=== PATIENT | female | born 1985 | race Caucasian/White ===

== ENCOUNTER 2017-04-13 14:39 | Inpatient (IN) | payer OTHER ==
[~2017-04-13] VITALS: Ht 154.9 cm; Wt 80.0 kg
[~2017-04-13 14:39] MED LIST: PRENTAB26 PO; ZNTT/150 PO
[2017-04-13] MEDS ORDERED: LACTATED RINGER'S 1000ML 1,000 ML IV SCH (15:11)
[2017-04-13] MEDS ORDERED: LACTATED RINGER'S 1000ML 1,000 ML IV PRN (15:11)
[2017-04-13 15:49] LABS: HEMATOCRIT 36.6 % (37-47); MEAN CELL VOLUME 87.8 fL (80-100); MEAN CORPUSCULAR HEMOGLOBIN 29.7 pg (25-34); MEAN CORPUSCULAR HGB CONC 33.9 g/dl (32-36); MEAN PLATELET VOLUME 10.1 fL (7.4-10.4); PLATELET COUNT 266 K/uL (130-400); RED BLOOD COUNT 4.17 M/uL (4.2-5.4); WHITE BLOOD COUNT 8.87 K/uL (4.8-10.8)
[2017-04-13] MEDS ORDERED: EpHEDrine SULFATE INJ 50 MG/ML AMP ONE (15:49)
[2017-04-13] MEDS ORDERED: BUPIVACAINE 0.25% 30 ML VIAL ONE (15:49)
[2017-04-13] MEDS ORDERED: FENTANYL 2MCG/ML ROPIV 1.25MG/ML 100ML BAG EPI ONE (15:50)
[2017-04-13] MEDS ORDERED: FENTANYL CITRATE INJ 50 MCG/1 ML 2 ML VIAL ONE (15:51)
--- NOTE | 2017-04-13 16:06 | HISTORY & PHYSICAL EXAMINATION ---
DATE OF ADMISSION: 04/13/2017 CHIEF COMPLAINT: Leakage of fluid and contractions. HISTORY OF PRESENT ILLNESS: The patient is a 31-year-old -0-0-2 at 39 weeks and 6 days of gestation who felt a leakage of fluid at around 2:15 p.m. this afternoon. She was shopping and she had a gush of fluid which soaked her underpants as well as her pants down to her legs and it was clear. She has been feeling contractions irregularly since last night, but they got closer and regular after she felt the leakage. They have been coming every 3-5 minutes and getting painful and she desires epidural for pain. She denies any bleeding. She reports good movements. She denies fever, chills, chest pain, shortness of breath, headache, change in her vision, nausea, vomiting, epigastric or right upper quadrant pain. Her has been uncomplicated and her initial testing is positive. Her cervix is found to be dilated 5 cm, 80%, -3 and she is being admitted for labor. PAST MEDICAL HISTORY: Unremarkable. PAST SURGICAL HISTORY: None. MEDICATIONS: vitamins. ALLERGIES: AMOXICILLIN. SOCIAL HISTORY: The patient denies smoking, alcohol or drug use. She is a medical doctor. She lives with her and her kids. GYNECOLOGIC HISTORY: The patient denies any history of STDs including Chlamydia, gonorrhea, and herpes. OBSTETRICAL HISTORY: She had 2 full term spontaneous vaginal deliveries with no complications in 2011 and 2014. This is her third . LABORATORY DATA: Her blood type is O positive, antibody screen negative, rubella titer positive, RPR nonreactive, hepatitis B surface antigen negative and urine culture was negative. GC chlamydia cultures were negative and her Glucola was 100 mg per deciliter. H\T\H was 13/37, platelets 308 and GBS culture was negative. PHYSICAL EXAMINATION: GENERAL: The patient is alert, oriented x3, not in acute distress. CARDIOVASCULAR SYSTEM: S1, S2, RRR. LUNGS: Clear to auscultation bilaterally. ABDOMEN: Soft, gravid. Crow's 7-7-1/2 pounds. EXTREMITIES: Nontender, no edema. VITAL SIGNS: Her blood pressure is 135/90, temperature 98, pulse 117. PELVIC: Her initial testing is positive. Cervix is 5 cm dilated, 80%, -3, vertex. heart rate 140s, category 1. [place] contractions every 2-4 minutes. ASSESSMENT AND PLAN: The patient is a 31-year-old 3, para 2-0-0-2 at 39 weeks and 6 days gestation presenting with spontaneous rupture of membranes at term with regular contractions and in active labor. Vital signs stable, afebrile. GBS negative. heart rate reassuring. Plan is admit her, start IV fluids and epidural for pain and anticipate spontaneous vaginal delivery. She understands that the augmentation of labor with Pitocin may be indicated if there is no cervical change, which will decrease the risk for chorioamnionitis infection. All questions were answered. NINI
[2017-04-13] MEDS ORDERED: LACTATED RINGER'S 1000ML 500 ML IV PRN (16:59)
[2017-04-13] MEDS ORDERED: NALOXONE HCL INJ 1 MG in SODIUM CHLORIDE 0.9% 1000ML 1,000 ML IV PRN (16:59)
[2017-04-13] MEDS ORDERED: NALBUPHINE HCL INJ 10 MG/ML AMP IV PRN (17:00)
[2017-04-13] MEDS ORDERED: FENTANYL 2MCG/ML ROPIV 1.25MG/ML 100ML BAG EPI PRN (17:00)
[2017-04-13] MEDS ORDERED: NALOXONE HCL INJ 0.4 MG/1 ML VIAL/CARP IV PRN (17:00)
[2017-04-13] MEDS ORDERED: DiphenhydrAMINE HCL 50 MG/ML VIAL IV PRN (17:00)
[2017-04-13] MEDS ORDERED: EpHEDrine SULFATE INJ 50 MG/ML AMP IV PRN (17:00)
[2017-04-13] MEDS ORDERED: ONDANSETRON INJ 2 MG/ML 2 ML VIAL IV PRN (17:00)
[2017-04-13] MEDS ORDERED: OXYTOCIN 30 UNITS/500ML NSS IV ONE (17:07)
[2017-04-13] MEDS ORDERED: DIPHTHERIA/TETANUS/PERTUSSIS 0.5 ML SYR/VIAL IM. ONE (17:30)
[2017-04-13] MEDS ORDERED: OXYTOCIN 30 UNITS/500ML NSS IV PRN (17:30)
[2017-04-13] MEDS ORDERED: SUPERCREAM 0.870 % 15GM JAR EXT PRN (17:30)
[2017-04-13] MEDS ORDERED: MEASLES, MUMPS & RUBELLA VIRUS VIAL SQ. ONE (17:30)
[2017-04-13] MEDS ORDERED: LANOLIN OINT EXT PRN ×2 (17:30)
[2017-04-13] MEDS ORDERED: ACETAMINOPHEN 325 MG TAB PO PRN (17:30)
[2017-04-13] MEDS ORDERED: HYDROCORTISONE ACETATE 25 MG SUPP PR PRN (17:30)
[2017-04-13] MEDS ORDERED: BENZOCAINE 20% AER SPR 82.5 GM CAN EXT PRN (17:30)
--- NOTE | 2017-04-13 18:11 | Anesthesia Procedure Note ---
Anesthesia Epidural Removal Nt Date & Time April 13, 2017 at 18:11 Notes Mental Status: alert / awake / arousable, participated in evaluation Nausea / Vomiting: adequately controlled Pain: adequately controlled Airway Patency, RR, SpO2: stable & adequate BP & HR: stable & adequate Hydration State: stable & adequate Neuraxial Anesthesia: was administered Anesthetic Complications: no major complications apparent, pt satisfied with anesthetic care Epidural: removed without complications, with tip intact
[2017-04-13 19:25] VITALS: BP 123/80; PULSE 87; TEMP 36.4
[2017-04-13 19:52] VITALS: Ht 154.9 cm; Wt 80.0 kg
--- NOTE | 2017-04-13 19:59 | DELIVERY SUMMARY ---
DATE OF OPERATION: 04/13/2017 TIME OF DELIVERY OF BABY: 17:10 p.m. TIME OF DELIVERY OF PLACENTA: 17:20 p.m. DETAILS OF DELIVERY: The patient was found to be fully dilated and desired to push. She pushed for about 10 minutes and delivered the head over an intact perineum. Shoulders were delivered with minimal traction and baby was handed off to the mother where mouth and nose were suctioned and the baby was dried. Cord was clamped x2 and cut at one minute delay. It was 3-vessel cord. Cord blood was obtained. Vagina and perineum were checked for lacerations. There were no lacerations in vagina or perineum. Placenta was found to be in the vagina, delivered spontaneously as intact and complete. Uterus was explored and found to be empty. Lower segment was cleared of all clots and debris. Fundus was firm. EBL was 100. Mom and baby tolerated the procedure well. Baby was a viable male . Apgars 8/10. Weight is 3491 gr. No complications happened and I was present during whole procedure. At the end of the procedure, sponge, lap, needle, instrument count was correct x2. I attest to the content of the Intraoperative Record and any orders documented therein. Any exceptions are noted below. MTDD
[2017-04-13 23:45] VITALS: BP 120/74; PULSE 93; TEMP 37
[2017-04-13] MEDS: IBUPROFEN 600 MG TAB PO PRN (23:57)
[2017-04-13] MEDS: RANITIDINE HCL 150 MG TAB PO SCH (23:57)
[2017-04-14 04:40] VITALS: BP 119/80; PULSE 92; TEMP 36.9
[2017-04-14 06:50] LABS: HEMATOCRIT 34.5 % (37-47)
[2017-04-14 07:45] VITALS: BP 123/81; PULSE 83; TEMP 36.4; O2SAT 97
[2017-04-14] MEDS: FERROUS SULFATE 325 MG TAB PO SCH (08:01)
[2017-04-14] MEDS: RANITIDINE HCL 150 MG TAB PO SCH ×2 (08:01→20:01)
[2017-04-14] MEDS: PRENATAL VITAMIN TAB PO SCH (08:01)
[2017-04-14] MEDS: IBUPROFEN 600 MG TAB PO PRN ×4 (08:02→23:35)
--- NOTE | 2017-04-14 11:39 | OB/GYN Progress Note ---
WIDE [facility] Progress Note Date of Service April 14, 2017. Subjective conversation w/ patient, physical exam Ambulation: ambulating normally Voiding: no voiding problems Passing Gas: Yes Diet Tolerance: Regular Diet Lochia: Small Feeding Type: Breast Feeding Objective Vital Signs Date Time Temp Pulse Resp B/P Pulse Ox O2 Delivery O2 Flow Rate FiO2 04/14/17 07:45 36.4 83 16 123/81 97 Room Air 04/14/17 07:45 97 Room Air 04/14/17 04:40 36.9 92 18 119/80 Room Air 04/13/17 23:45 Room Air 04/13/17 23:45 37.0 93 20 120/74 Room Air 04/13/17 19:25 36.4 87 20 123/80 Room Air Physical Exam General Appearance: WELL-APPEARING, NO APPARENT DISTRESS Abdomen: non tender, soft Fundus: Firm Extremities: no pedal edema, no calf tenderness Laboratory Results Last 24 Hours Test 04/13/17 15:27 04/13/17 15:28 04/14/17 06:26 White Blood Count 8.87 K/uL Red Blood Count 4.17 M/uL Hemoglobin 12.4 g/dL 11.5 g/dL Hematocrit 36.6 % 34.5 % Mean Corpuscular Volume 87.8 fL Mean Corpuscular Hemoglobin 29.7 pg Mean Corpuscular Hemoglobin Concent 33.9 g/dl RDW Standard Deviation 44.1 fL RDW Coefficient of Variation 13.8 % Platelet Count 266 K/uL Mean Platelet Volume 10.1 fL Amniotic Fluid Protein POS Assessment and Plan Post- Day Number: 1 Continue Routine Care: tent d/c in AM
[2017-04-14 12:10] VITALS: BP 121/84; PULSE 84; TEMP 36.5; O2SAT 98
[2017-04-14 16:00] VITALS: BP 119/84; PULSE 85; TEMP 36.6; O2SAT 97
[2017-04-14] MEDS ORDERED: BISACODYL 5 MG TABEC PO SCH (20:00)
[2017-04-14 23:45] VITALS: BP 126/85; PULSE 83; TEMP 36.5
[2017-04-15] MEDS ORDERED: BISACODYL 10 MG SUPP PR PRN (07:00)
[2017-04-15 07:11] LABS: HEMATOCRIT 35.4 % (37-47); MEAN CELL VOLUME 89.2 fL (80-100); MEAN CORPUSCULAR HEMOGLOBIN 29.7 pg (25-34); MEAN CORPUSCULAR HGB CONC 33.3 g/dl (32-36); MEAN PLATELET VOLUME 9.4 fL (7.4-10.4); PLATELET COUNT 246 K/uL (130-400); RED BLOOD COUNT 3.97 M/uL (4.2-5.4)
[2017-04-15 07:55] VITALS: BP 119/72; PULSE 103; TEMP 36.6; O2SAT 96
--- NOTE | 2017-04-15 07:57 | OB/GYN Progress Note ---
[employer] Progress Note Date of Service: April 15, 2017. Patient is seen and examined. She feels well, no complaints. Ambulating without dizziness Voiding without difficulty Tolerating regular diet with out N&V Bleeding is minimal No fever/ chills/ CP/ SOB/ N&V/ Leg pain Breast feeding without problems Discussed contraception with patient in details. Abstinence for 6 weeks, BCP, progestin only pills, Nexplanon, IUD's, Mirena and Pargard. Likes to think about it. Date Time Temp Pulse Resp B/P Pulse Ox O2 Delivery O2 Flow Rate FiO2 04/14/17 23:45 Room Air 04/14/17 23:45 36.5 83 18 126/85 Room Air 04/14/17 16:00 36.6 85 18 119/84 97 Room Air 04/14/17 16:00 97 Room Air 04/14/17 12:10 36.5 84 20 121/84 98 Room Air Last 24 Hours Test 04/15/17 06:50 White Blood Count 7.10 K/uL Red Blood Count 3.97 M/uL Hemoglobin 11.8 g/dL Hematocrit 35.4 % Mean Corpuscular Volume 89.2 fL Mean Corpuscular Hemoglobin 29.7 pg Mean Corpuscular Hemoglobin Concent 33.3 g/dl RDW Standard Deviation 45.4 fL RDW Coefficient of Variation 13.9 % Platelet Count 246 K/uL Mean Platelet Volume 9.4 fL PE: General: Alert, orientedx3, NAD Abd: soft, NT, fundus firm, below Umbilicus Perineum intact, Lochia rubra minimal Ext; NT, no edema AP: 31 yo s/p , ppd# 2 VSS Afebrile doing well Continue routine care All questions were answered D/C home , f/u in office
[2017-04-15] MEDS: RANITIDINE HCL 150 MG TAB PO SCH (08:18)
[2017-04-15] MEDS: PRENATAL VITAMIN TAB PO SCH (08:18)
[2017-04-15] MEDS: FERROUS SULFATE 325 MG TAB PO SCH (08:18)
--- NOTE | 2017-04-15 11:55 | Discharge Instructions ---
Discharge Instructions Date of Service April 15, 2017. Admission Reason for Admission: Check Repture Membranes Discharge Discharge Diagnosis / Problem: Discharge Goals Goal(s): Routine recovery after delivery Medications Continue Dispensed Medications: lansinoh Activity Recommendations Activity Limitations: as noted below Lifting Limitations: gradually increase as tolerated Exercise/Sports Limitations: until after follow-up appointment May Resume Sexual Activity: after follow-up appointment Shower/Bathe: no limitations Driving or Machine Use: ACTIVITY RECOMMENDATIONS: * Gradual return to full activity over the next 2-3 weeks. * No lifting - nothing heavier than baby over the next 2-3 weeks. * Do not engage in vigorous exercise, sexual activity or sports until cleared by your physician. * Do not drive or operate any motorized equipment until cleared by your physician. * You may shower/bathe daily. BREAST CARE: If you are not breast feeding: * Wear a supportive bra 24 hours a day for one to two weeks. * Avoid stimulating your breasts and nipples as much as possible during the first few weeks after delivery. * When taking a shower, have the warm water hit your back, not breasts. * When your breasts feel full, apply ice packs. Usually three to four times a day helps ease the discomfort. * Take a mild pain medication (Tylenol/Motrin) when you are uncomfortable. If breast feeding: * Use breast milk to lubricate nipples. Lansinoh cream may be used for sore nipples. You do not need to remove cream prior to breast feeding. If using a different brand of cream, check the label for directions regarding removal of cream prior to nursing. * Wear a supportive bra. * If having problems with breasts or breast feeding, call a otm consultant or your health care provider. EPISIOTOMY CARE: After delivery, if you have an episiotomy (stitches), the following steps will ease discomfort and aid healing. * For the first 24 hours after delivery, place ice packs next to your episiotomy to help reduce swelling. * After the first 24 hour-period, sitz baths, either portable or in the tub, are suggested. A shower with a shower arm sprayed over the episiotomy may be comforting. * Jenn care should be done after each voiding and bowel movement. Squirt warm water from a plastic bottle over the perineum (region of the body between the anus and urinary opening) and pat dry. * Use Dermoplast to ease discomfort. Shake container. [place] directly over the episiotomy. * Place a Tucks on a clean sanitary pad next to your episiotomy. OVER THE COUNTER MEDICATION: * For discomfort or pain, you may use Acetaminophen (Tylenol), Ibuprofen (Advil ), or Naproxen (Aleve) following the package directions. * For constipation you may use Colace following the package directions. SPECIAL CARE INSTRUCTIONS: When you are discharged from the hospital, it is important for you to follow the instructions listed below: * During the first week at home, you should be able to care for yourself and your baby. In addition, the usual light household activities are encouraged. * Limit your activities to the way you feel. Do not try to clean the house or move furniture. Be sensible. * If you actively engage in sports and have done so up until the time of your delivery, you may resume these activities as soon as you feel able. This may take up to one month or even longer. Use good judgment. * Continue to take your vitamins for at least six weeks after the of your baby. * Your diet need not be limited unless you were on a special diet before your delivery. Breast-feeding mothers need around 2500 calories per day and at least 64-80 ounces of fluid per day (8 to 10 glasses). * You should eat foods from the four major food groups. Crash diets or fad diets are to be avoided. Eating lean meats, fresh fruits and vegetables, low-fat dairy products, high fiber foods and a regular exercise program, will help you get back to your pre- weight without putting your health at risk. * Constipation is sometimes a problem after delivery. Take a mild laxative as needed. If breast feeding, Milk of Magnesia is acceptable to use. You may use a suppository or Fleets enema if no episiotomy. * A daily shower or tub bath is suggested. Be sure to thoroughly and gently dry the perineum. * A bloody vaginal discharge will usually continue until around four weeks post . A small amount of bleeding may continue for as long as six weeks. Vaginal discharge changes from the bright red bleeding after delivery to pink then brownish and finally yellowish-pink before becoming white and disappearing. * Bleeding may increase with activity. Your first period may come in 4-8 weeks. If you are breast feeding, your period may be delayed even longer. * [place] (sex) can begin whenever both you and your partner feel comfortable and do not have any form of genital infection. It is recommended that you wait until after your return appointment and discuss with your physician. If you have questions, please talk to your health care practitioner. A condom should be used to prevent infection and . * Foreplay, gentle intercourse and lubrication is very important the first several times to prevent pain. A water-based lubricant such as K-Y jelly or Astroglide may be used. * Tampons may be used six weeks after delivery. * Douching should be avoided for 6 weeks after delivery. * If you have RH negative blood and your baby is RH positive, you will receive RHOGAM by injection prior to discharge. The nurse will give you a card to keep with you that has the date and place that you received RHOGAM after delivery. * During your care, you had a Rubella screen done to check for the presence of rubella antibodies in your blood. If your test was negative, you will receive a Rubella vaccine prior to discharge. This vaccine may cause a fever, soreness at the injection site and flu-like symptoms. If these symptoms persist, notify your health care practitioner. is not advised for three months after a Rubella vaccine. There is a higher chance of having a baby with defects if conceived within three months of getting the vaccine. * If you were discharged 24 hours from delivery or before 48 hours: Visiting nurses will come to your home 48 hours after discharge to assess you and your baby. The visiting nurse will meet with you while you are in the hospital to arrange a time and get directions to your home. * Verbalizes understanding of car seat law as reviewed with patient nursing. * Car Seat hand-out given and reviewed with patient by nursing. * Shaken baby information reviewed with patient by nursing. Call you doctor if: * Heavy bleeding (saturating several pads an hour) or passing clots the size of your fist. * A fever >101 degrees F (38.3 degrees C) on two occasions four hours apart and/or chills. * Unusual pain in the pelvic or vaginal areas. * "Baby Blues" lasting longer than two weeks. If you have any questions or concerns, call your health care practitioner at . FOLLOW-UP VISIT: * Please call the office at to schedule a 6 week examination. It is important you keep this appointment. * It is important for you to make arrangements for either yearly or twice yearly check-ups thereafter. . Current Hospital Diet Patient's current hospital diet: Regular OB Diet Discharge Diet Recommended Diet: Regular Diet Pending Studies Studies pending at discharge: no Medical Emergencies . Who to Call and When: Medical Emergencies: If at any time you feel your situation is an emergency, please call 911 immediately. . Non-Emergent Contact Non-Emergency issues call your: Primary Care Provider, Surgeon . . "Provider Documentation" section prepared by Mare Flannery. . VTE Core Measure Inpt VTE Proph given/why not?: Treatment not indicated
[2017-04-15 13:37] VITALS: BP_DIAS 72; PULSE 103; TEMP 36.6
== END 2017-04-15 13:43 | disposition home or self-care (01) | DRG 775 ==
LOC: C.OPB 14:39 → C.LD 14:39 → C.OPB 17:26 → C.OBG 21:04
PROVIDERS: ADMIT Obstetrics & Gynecology; ATTEND Obstetrics & Gynecology
PROC: 10E0XZZ Delivery of Products of Conception, External Approach (ICD-10-PCS; principal; 2017-04-13)
DX: O80 Encounter for full-term uncomplicated delivery (principal); Z37.0 Single live birth; Z3A.39 39 weeks gestation of pregnancy